=== PATIENT | female | born 1970 | race Caucasian/White ===

== ENCOUNTER 2018-02-22 08:04 | Emergency (ER) | payer OTHER ==
[~2018-02-22] VITALS: Ht 165.1 cm; Wt 102.1 kg
[~2018-02-22 08:04] MED LIST: ANASPAZ0.125 MG; ANTIVERT25 MG PO; BACTRIM; BACTRIM DS TAB1 EACH PO; BACTROBAN CREAM30 G1 TOP; BENTYL 10 MG CA10 M1 PO; CIPROFLOXACIN500 M1; CIPROFLOXACIN500 M3 PO; CLEOCIN HCL300 MG PO; CYMBALTA; CYMBALTA60 MG PO; DEMEROL50 MG; DILAUDID 2 MG TA2 MG PO; DOCUSATE SODIU100 MG; DOXYCYCLINE 10100 M1 PO; FLOMAX PO; HYDROCODONE-AP1 EAC6 PO; HYDROXYZINE HCL25 M1 PO; HYDROXYZINE PAM25 M1 PO; IBUPROFEN 800800 M1 PO; MACROBID 100 M100 M1 PO; NEURONTIN 300300 M1 PO; NEXIUM40 MG PO; NICOTINE TRANSD21 M1 TD; NOHOMEMEDICATIONS; OMEPRAZOLE 20 M20 M1 PO; ONDANSETRON HCL8 MG; OXYBUTYNIN 5 MG5 M1; PERCOCET 10-321 EACH; PERCOCET 5-3251 EACH; PERCOCET 5-3251 EACH PO; PHENERGAN 25 MG25 M1 PO; PREMARIN; PRILOSEC; PRILOSEC 20 MG20 MG PO; PROTONIX 20 MG20 M1 PO; ROXICODONE5 MG PO; TAMSULOSIN HCL0.4 M1; TRAMADOL 50 MG50 MG PO; ULTRAM 50MG TAB50 MG PO; ZANTAC 150MG T150 M1 PO; ZOFRAN ODT4 MG PO; ZPAK PO; ZYRTEC 10 MG TA10 MG PO
[2018-02-22] MEDS ORDERED: CYMBALTA20 MG PO (08:25)
[2018-02-22 08:38] LABS: URINE BILIRUBIN NEGATIVE (Negative); URINE BLOOD TRACE (Negative); URINE CLARITY CLEAR; URINE COLOR YELLOW; URINE GLUCOSE-RANDOM NEGATIVE (Negative); URINE KETONES NEGATIVE (Negative); URINE LEUKOCYTES-REFLEX NEGATIVE (Negative); URINE NITRITE-REFLEX NEGATIVE (Negative); URINE PROTEIN NEGATIVE (Negative); URINE UROBILINOGEN 0.2 E.U./dl (0.2-1.0)
[2018-02-22 08:38] LABS: ABSOLUTE BASOPHILS 0.2 thou/uL (0.0-0.2); ABSOLUTE EOSINOPHILS 0.3 thou/uL (0.0-0.7); ABSOLUTE LYMPHOCYTES 3.6 thou/uL (0.8-5.3); ABSOLUTE MONOCYTES 0.6 thou/uL (0.0-1.2); ABSOLUTE NEUTROPHILS 6.6 thou/uL (1.6-8.1); BASOPHILS 1.4 %; EOSINOPHILS 2.7 %; HEMATOCRIT 45.1 % (37.0-47.0); HEMOGLOBIN 15.1 gm/dL (12.0-15.0); LYMPHOCYTES 32.3 %; MCH 31.4 pg (26.0-34.0); MCHC 33.5 g/dL (28.0-37.0); MCV 93.8 fL (80.0-100.0); NUCLEATED RBCS 0 /100WBC; PLATELET COUNT* 312 thou/uL (150-400); POLYS 58.6 %; RDW-CV 13.9 % (10.5-14.5); WBC 11.3 thou/uL (4.0-11.0)
[2018-02-22 08:45] LABS: BACTERIA-REFLEX 1-9 Few /HPF (None Seen); CASTS None Seen /LPF (None Seen); CRYSTALS None Seen /LPF (None Seen); MUCUS 0-3 Light strn/LPF (None Seen); SQUAMOUS 4-10 Moderate /LPF (0-3); URINE RBC 0-2 Rare /HPF (0-2); URINE WBC-REFLEX 0-5 Rare /HPF (0-5)
[2018-02-22 08:46] LABS: CALCIUM 8.7 mg/dL (8.5-10.1); POTASSIUM 4.4 mmol/L (3.5-5.1)
[2018-02-22 08:50] LABS: ALBUMIN 3.5 g/dL (3.4-5.0); TOTAL BILIRUBIN 0.4 mg/dL (<0.1-1.0); TOTAL PROTEIN 7.9 g/dL (6.4-8.2)
[2018-02-22] MEDS ORDERED: CYCLOBENZAPRINE5 MG PO (10:42)
[2018-02-22] MEDS ORDERED: BACTRIM DS TAB1 EACH PO (10:42)
[2018-02-22] MEDS ORDERED: BENTYL 20 MG TA20 M1 PO (10:42)
[2018-02-22 11:03] VITALS: BP 122/91
== END 2018-02-22 11:04 | disposition home or self-care (01) ==
LOC: M.ERS 08:04
PROVIDERS: Personal Emergency Response Attendant
DX: R10.32 Left lower quadrant pain (principal); I80.8 Phlebitis and thrombophlebitis of other sites; R11.2 Nausea with vomiting, unspecified; R19.7 Diarrhea, unspecified; M79.7 Fibromyalgia; F17.210 Nicotine dependence, cigarettes, uncomplicated; Z88.5 Allergy status to narcotic agent; Z88.6 Allergy status to analgesic agent; Z88.0 Allergy status to penicillin; Z91.041 Radiographic dye allergy status; Z88.8 Allergy status to other drugs, medicaments and biological substances; Z90.49 Acquired absence of other specified parts of digestive tract; Z87.442 Personal history of urinary calculi; Z90.710 Acquired absence of both cervix and uterus; Z90.721 Acquired absence of ovaries, unilateral

== ENCOUNTER 2018-07-31 13:09 | Emergency (ER) | payer OTHER ==
[~2018-07-31] VITALS: Ht 167.6 cm; Wt 107.0 kg
[~2018-07-31 13:09] MED LIST changes: +BENTYL 20 MG TA20 M1 PO; +CYCLOBENZAPRINE5 MG PO; +CYMBALTA20 MG PO
[2018-07-31] MEDS ORDERED: TIROSINT25 MCG PO (13:26)
[2018-07-31 13:38] LABS: URINE BILIRUBIN NEGATIVE (Negative); URINE BLOOD TRACE (Negative); URINE CLARITY CLEAR; URINE COLOR YELLOW; URINE GLUCOSE-RANDOM NEGATIVE (Negative); URINE KETONES NEGATIVE (Negative); URINE LEUKOCYTES-REFLEX NEGATIVE (Negative); URINE NITRITE-REFLEX NEGATIVE (Negative); URINE PROTEIN NEGATIVE (Negative); URINE SPECIFIC GRAVITY 1.025 (1.005-1.030); URINE UROBILINOGEN 0.2 E.U./dl (0.2-1.0)
[2018-07-31 14:33] LABS: ABSOLUTE EOSINOPHILS 0.3 thou/uL (0.0-0.7); ABSOLUTE LYMPHOCYTES 4.5 thou/uL (0.8-5.3); ABSOLUTE MONOCYTES 0.7 thou/uL (0.0-1.2); ABSOLUTE NEUTROPHILS 7.4 thou/uL (1.6-8.1); BASOPHILS 0.3 %; EOSINOPHILS 2.2 %; HEMATOCRIT 42.5 % (37.0-47.0); HEMOGLOBIN 14.4 gm/dL (12.0-15.0); LYMPHOCYTES 35.1 %; MCH 31.5 pg (26.0-34.0); MCHC 33.9 g/dL (28.0-37.0); MCV 93.1 fL (80.0-100.0); MONOCYTES 5.2 %; NUCLEATED RBCS 0 /100WBC; PLATELET COUNT* 360 thou/uL (150-400); POLYS 57.2 %; RBC 4.56 mil/uL (4.20-5.00); RDW-CV 14.1 % (10.5-14.5)
[2018-07-31 15:08] LABS: ALBUMIN 3.8 g/dL (3.4-5.0); CALCIUM 8.9 mg/dL (8.5-10.1); POTASSIUM 3.5 mmol/L (3.5-5.1); TOTAL BILIRUBIN 0.4 mg/dL (<0.1-1.0); TOTAL PROTEIN 8.1 g/dL (6.4-8.2)
[2018-07-31] MEDS ORDERED: TRAMADOL 50 MG50 MG PO (15:46)
[2018-07-31] MEDS ORDERED: ZOFRAN4 MG PO (15:46)
[2018-07-31 16:00] VITALS: BP 110/74
== END 2018-07-31 16:00 | disposition home or self-care (01) ==
LOC: M.ERS 13:09
PROVIDERS: Emergency Medicine
DX: R10.84 Generalized abdominal pain (principal); M79.7 Fibromyalgia; F17.210 Nicotine dependence, cigarettes, uncomplicated; Z88.0 Allergy status to penicillin; Z88.5 Allergy status to narcotic agent; Z91.041 Radiographic dye allergy status; Z88.8 Allergy status to other drugs, medicaments and biological substances; Z90.49 Acquired absence of other specified parts of digestive tract; Z90.722 Acquired absence of ovaries, bilateral; Z87.442 Personal history of urinary calculi; Z90.710 Acquired absence of both cervix and uterus

== ENCOUNTER 2018-12-17 01:20 | Emergency (ER) | payer OTHER ==
[~2018-12-17] VITALS: Ht 165.1 cm; Wt 97.5 kg
[~2018-12-17 01:20] MED LIST changes: +TIROSINT25 MCG PO; +ZOFRAN4 MG PO
[2018-12-17] MEDS ORDERED: INDOMETHACIN 5050 M1 (01:35)
[2018-12-17] MEDS ORDERED: BENTYL 20 MG TA20 M1 PO (01:35)
[2018-12-17] MEDS ORDERED: TRAZODONE HCL50 MG PO (01:35)
[2018-12-17] MEDS ORDERED: NORCO 5-325 TA1 EAC1 PO (03:18)
[2018-12-17] MEDS ORDERED: KEFLEX500 M1 PO (03:18)
[2018-12-17 03:56] VITALS: BP 133/71
== END 2018-12-17 03:58 | disposition home or self-care (01) ==
LOC: M.ERS 01:20
DX: S93.401A Sprain of unspecified ligament of right ankle, initial encounter (principal); S90.811A Abrasion, right foot, initial encounter; E03.9 Hypothyroidism, unspecified; M79.7 Fibromyalgia; F17.210 Nicotine dependence, cigarettes, uncomplicated; Z90.49 Acquired absence of other specified parts of digestive tract; Z98.890 Other specified postprocedural states; Z90.711 Acquired absence of uterus with remaining cervical stump; Z90.710 Acquired absence of both cervix and uterus; Z87.442 Personal history of urinary calculi; Z88.5 Allergy status to narcotic agent; Z88.0 Allergy status to penicillin; Z91.041 Radiographic dye allergy status; W18.39XA Other fall on same level, initial encounter; Y92.89 Other specified places as the place of occurrence of the external cause; Y93.01 Activity, walking, marching and hiking; Y99.8 Other external cause status